=== PATIENT | female | born 1990 | race Caucasian/White ===

== ENCOUNTER 2020-06-10 09:31 | Emergency (ER) | payer OTHER ==
[2020-06-10] MEDS ORDERED: MOBIC15 MG PO (13:44)
[2020-06-10] MEDS ORDERED: CYCLOBENZAPRINE5 MG PO (13:44)
== END 2020-06-10 14:02 | disposition home or self-care (01) ==
LOC: ER1 09:31
DX: S39.012A Strain of muscle, fascia and tendon of lower back, initial encounter (principal); S16.1XXA Strain of muscle, fascia and tendon at neck level, initial encounter; S60.221A Contusion of right hand, initial encounter; S60.212A Contusion of left wrist, initial encounter; S80.12XA Contusion of left lower leg, initial encounter; S80.211A Abrasion, right knee, initial encounter; F17.210 Nicotine dependence, cigarettes, uncomplicated; Z79.899 Other long term (current) drug therapy; V49.40XA Driver injured in collision with unspecified motor vehicles in traffic accident, initial encounter; Y92.410 Unspecified street and highway as the place of occurrence of the external cause; Z23 Encounter for immunization
CPT/HCPCS: 70450; 72100; 72125; 73110; 73130; 73562; 73590; 90471; 90715; 99284